=== PATIENT | female | born 2000 | race Caucasian/White ===

== ENCOUNTER → 2023-04-02 11:09 | Outpatient (BNVA) | payer MEDICAID, SELFPAY | PROVIDERS: PCP Obstetrics & Gynecology; Visit Provider Internal Medicine | DX: R76.8 Other specified abnormal immunological findings in serum (principal); R53.83 Other fatigue; M35.00 Sjogren syndrome, unspecified; L40.9 Psoriasis, unspecified; Z11.59 Encounter for screening for other viral diseases; Z11.1 Encounter for screening for respiratory tuberculosis | CPT/HCPCS: 36415; 72202; 73120; 80053; 81001; 82550; 82607; 82784; 83516; 83520; 84443; 85025; 85651; 86003; 86008; 86140; 86160; 86162; 86200; 86235; 86255; 86376; 86431; 86480; 86704; 86803; 87340; 87806; 99204 ==

== ENCOUNTER → 2023-05-26 13:58 | Outpatient (BNVA) | payer MEDICAID, SELFPAY | PROVIDERS: PCP Obstetrics & Gynecology; Visit Provider Internal Medicine | DX: R76.8 Other specified abnormal immunological findings in serum (principal); R53.83 Other fatigue; M35.00 Sjogren syndrome, unspecified; R00.0 Tachycardia, unspecified; Z91.018 Allergy to other foods; K90.0 Celiac disease | CPT/HCPCS: 99214 ==